=== PATIENT | male | born 1940 | race Caucasian/White ===

== ENCOUNTER 2022-07-04 18:14 | Emergency (ER) | payer MEDICARE, MEDICAID ==
[~2022-07-04] VITALS: Ht 180.3 cm; Wt 55.3 kg
[~2022-07-04 18:14] MED LIST: BUS5 GT; CARB1TAB37 GT; DOCU-300 GT; FAMO-368 GT; MELA1TAB32 GT; [UNRECOGNIZED DRUG - CODE] GT; [UNRECOGNIZED DRUG - CODE] PO
--- NOTE | 2022-07-04 18:14 | NUR ---
180 BIBA ALS TO ER BED 6
[2022-07-04 18:25] VITALS: BP 154/82
--- NOTE | 2022-07-04 18:33 | NUR ---
82 y/o [place] [facility] [place] reports patient has been having episodes of desaturation and increased wbc 20.5. pt is trach to vent with gtube. nurse reports pt has redness on bl heels, elbows, and buttocks. pt saturation on vent is currently 100% here. gcs 6, skin cool/moist/nonintact. ermd made aware pt status. pmh: prostate cancer, parkinsons, chronic respiratory failure, gtube, encephalopathy, sepsis nka med: see list
--- NOTE | 2022-07-04 19:01 | NUR ---
Lab at bedside.
--- NOTE | 2022-07-04 19:10 | NUR ---
Report given to HERNÁN Edmond for transfer of care.
[2022-07-04 19:33] LABS: BASOPHILS % (AUTO) 0.2 % (0.0-2.0); EOSINOPHILS # (AUTO) 0.2 K/uL (0-0.4); EOSINOPHILS % (AUTO) 1.2 % (0.0-4.0); HEMATOCRIT 25.2 % (36-52); LYMPHOCYTES # (AUTO) 1.7 K/uL (2.0-11.5); LYMPHOCYTES % (AUTO) 8.4 % (20.5-51.1); MEAN CORPUSCULAR HEMOGLOBIN 28 pg (27-31); MEAN CORPUSCULAR HGB CONC 30 g/dL (33-37); MEAN CORPUSCULAR VOLUME 90.8 fL (80-94); MONOCYTES # (AUTO) 0.6 K/uL (0.8-1.0); MONOCYTES % (AUTO) 3.1 % (1.7-9.3); NEUTROPHILS % (AUTO) 87.1 % (42.2-75.2); PLATELET COUNT (AUTO) 491 K/uL (140-450); RED BLOOD CELL COUNT(AUTO) 2.78 MIL/uL (4.20-6.10); RED CELL DISTRIBUTION WIDTH 19.2 % (11.6-13.7); WHITE BLOOD COUNT (AUTO) 20.6 K/uL (4.8-10.8)
[2022-07-04 19:38] LABS: HEMOGLOBIN 7.6 g/dL (12.0-18.0)
--- NOTE | 2022-07-04 19:39 | NUR ---
Note raven in EDM - 07/04/22 at 1940 by [id number] FIRST CONTACT WITH PT. SEE INITIAL ASSESSMENT. MOTHER WITH PT.
--- NOTE | 2022-07-04 19:40 | NUR ---
ASSUMED CARE OF PT AT THIS TIME. PT IN POSITION OF COMFORT. NO S/S OF DISTRESS NOTED. VSS. AWAITING RESULTS. WILL CONTINUE TO MONITOR.
[2022-07-04 19:45] LABS: ALBUMIN 2.2 g/dL (3.4-5.0); ANION GAP 9.3 (8-16); ASPARTATE AMINOTRANSFERASE 22 U/L (15-37); CARBON DIOXIDE 34.6 mmol/L (21-32); CHLORIDE 109 mmol/L (98-107); CREATININE 0.7 mg/dL (0.6-1.3); GLUCOSE 95 mg/dL (74-106); POTASSIUM 4.9 mmol/L (3.5-5.1); SODIUM SERUM 148 mmol/L (136-145); TOTAL BILIRUBIN 0.4 mg/dL (0.0-1.0); UREA NITROGEN, BLOOD 41 mg/dL (7-18)
--- NOTE | 2022-07-04 19:50 | NUR ---
SWABS COLLECTED AND SENT TO LAB
[2022-07-04] MEDS ORDERED: CEFEPIME 1,000 MG in DEXTROSE 5% 50 ML IV ONE (21:05)
[2022-07-04] MEDS ORDERED: CEFEPIME 1,000 MG VIAL ONE (21:54)
[2022-07-04] MEDS ORDERED: CEFE1SOL IV (21:56)
[2022-07-04 22:08] LABS: APPEARANCE,URINE CLEAR (CLEAR); BILIRUBIN,URINE NEGATIVE (NEGATIVE); BLOOD, URINE NEGATIVE (NEGATIVE); COLOR,URINE YELLOW (YELLOW); LEUKOCYTE ESTERASE ,URINE NEGATIVE (NEGATIVE); NITRITE, URINE NEGATIVE (NEGATIVE); PH,URINE 8.5 (5.0-9.0); UGLUCOSE NEGATIVE (NEGATIVE)
[2022-07-04 22:34] LABS: RBC,URINE 0-5 /HPF (0-5); WBC,URINE 0-5 /HPF (0-5)
--- NOTE | 2022-07-04 22:47 | NUR ---
[facility] TRANSPORT AT BEDSIDE
[2022-07-04 23:11] VITALS: BP 126/72
--- NOTE | 2022-07-04 23:11 | NUR ---
Patient discharged with v/s stable. Written and verbal after care instructions given and explained TO KEELEY AT [facility] AND CCT RN SADAF. PT SENT WITH 20G IV TO [facility] Ambulance Transport with to half-way. All questions addressed prior to discharge. ID band removed. Patient advised to follow up with PMD. Rx of CEFAPIME given.
--- NOTE | 2022-07-04 23:15 | NUR ---
REPORT CALLED TO KEELEY AT [facility] [place] WITH FULL RETURNED VERBAL UNDERSTANDING.
== END 2022-07-04 23:11 ==
LOC: MED 18:14
DX: J18.9 Pneumonia, unspecified organism (principal); Z20.822 Contact with and (suspected) exposure to COVID-19; I10 Essential (primary) hypertension; Z79.899 Other long term (current) drug therapy; Z85.46 Personal history of malignant neoplasm of prostate
CPT/HCPCS: 36415; 71045; 80053; 81001; 81003; 83605; 85025; 87040; 87086; 87426; 87804; 96365; 99284; J0692; Q0092

== ENCOUNTER 2022-07-06 15:27 | Emergency (ER) | payer MEDICARE, MEDICAID ==
[~2022-07-06] VITALS: Ht 180.3 cm; Wt 55.3 kg
[~2022-07-06 15:27] MED LIST changes: +CEFE1SOL IV
[2022-07-06 15:35] VITALS: BP 134/66
--- NOTE | 2022-07-06 15:35 | NUR ---
BIBA TO ER BED 5
[2022-07-06 15:36] VITALS: BP 128/57
--- NOTE | 2022-07-06 15:44 | NUR ---
SIN AT BEDSIDE FOR EVALUATION
--- NOTE | 2022-07-06 16:00 | NUR ---
82YO MALE PT BIBA [facility] DUE TO ABNORMAL LABS. PER [facility], FACILTY STATES PT HAD HEMOGLOBIN OF 6.4 . PT RECENTLY ADMITTED FOR PNEUMONIA AND ON ANTIBIOTICS. PT ON VENT W/ RESPIRATIONS OF 40. NO VISIBLE DISTRESS NOTED. GTUBE IN PLACE. AROUSABLE TO VOICE AND TOUCH. ON ECONOMICS DEPARTMENT CHAIR. BED AT LOWEST POSITION, BED RAILS UPX2. HX: PROSTATE CANCER, PARKINSONS, CHRONIC RESPIRATORY FAILURE, ENCEPHALOPATHY, SEPSIS , GTUBE NKA VENT SETTINGS: AC VT 550 RR 18 +5 PEEP Fi02 30%.
[2022-07-06 16:16] LABS: BASOPHILS % (AUTO) 0.3 % (0.0-2.0); EOSINOPHILS # (AUTO) 0.2 K/uL (0-0.4); EOSINOPHILS % (AUTO) 1.2 % (0.0-4.0); HEMOGLOBIN 7.4 g/dL (12.0-18.0); LYMPHOCYTES # (AUTO) 2.2 K/uL (2.0-11.5); LYMPHOCYTES % (AUTO) 14.9 % (20.5-51.1); MEAN CORPUSCULAR HEMOGLOBIN 28 pg (27-31); MEAN CORPUSCULAR HGB CONC 31 g/dL (33-37); MEAN CORPUSCULAR VOLUME 90.7 fL (80-94); MONOCYTES # (AUTO) 0.7 K/uL (0.8-1.0); NEUTROPHILS # (AUTO) 11.7 K/uL (1.8-7.7); NEUTROPHILS % (AUTO) 78.6 % (42.2-75.2); PLATELET COUNT (AUTO) 460 K/uL (140-450); RED BLOOD CELL COUNT(AUTO) 2.65 MIL/uL (4.20-6.10); WHITE BLOOD COUNT (AUTO) 14.8 K/uL (4.8-10.8)
[2022-07-06 16:36] LABS: ALBUMIN 2.2 g/dL (3.4-5.0); ANION GAP 8.3 (8-16); ASPARTATE AMINOTRANSFERASE 17 U/L (15-37); CHLORIDE 107 mmol/L (98-107); CREATININE 0.7 mg/dL (0.6-1.3); GLUCOSE 96 mg/dL (74-106); POTASSIUM 4.3 mmol/L (3.5-5.1); SODIUM SERUM 144 mmol/L (136-145); TOTAL BILIRUBIN 0.5 mg/dL (0.0-1.0); UREA NITROGEN, BLOOD 36 mg/dL (7-18)
[2022-07-06 16:38] LABS: PROTHROMBIN TIME 10.2 secs (10.8-13.4)
--- NOTE | 2022-07-06 19:03 | NUR ---
[facility] CONTACTED . MADE AWARE OF PT D/C, TX AND ETA. REPORT GIVEN TO GERALDINE JIM .
--- NOTE | 2022-07-06 19:18 | NUR ---
REPORT GIVEN TO TABITHA JIM. TRANSFER OF CARE AT THIS TIME
--- NOTE | 2022-07-06 19:47 | NUR ---
REPORT TO SADAF JIM WITH [facility] FOR TRANSP[place] [facility] [place]
[2022-07-06 19:49] VITALS: BP 135/66
--- NOTE | 2022-07-06 19:49 | NUR ---
Patient discharged with v/s stable. Written and verbal after care instructions given and explained. Patient verbalized understanding. Ambulance Transport with to [facility]. All questions addressed prior to discharge. Advised to follow up with PMD.
== END 2022-07-06 19:49 | disposition home or self-care (01) ==
LOC: MED 15:27
DX: D64.9 Anemia, unspecified (principal); J18.9 Pneumonia, unspecified organism; I10 Essential (primary) hypertension; Z85.46 Personal history of malignant neoplasm of prostate; Z79.899 Other long term (current) drug therapy
CPT/HCPCS: 36415; 36600; 71045; 80053; 82803; 85025; 85610; 85730; 86886; 86900; 86901; 99285

== ENCOUNTER 2022-07-09 18:54 | Inpatient (IN) | payer MEDICARE, MEDICAID ==
[~2022-07-09] VITALS: Ht 177.8 cm; Wt 55.1 kg
--- NOTE | 2022-07-09 18:56 | NUR ---
pt offloaded to bed 1, rt at bedside.
--- NOTE | 2022-07-09 19:06 | NUR ---
male Poultry Hatchery Supervisor accompanied male patient for Rectal Exam.
[2022-07-09 19:08] VITALS: BP 126/65
[2022-07-09 19:10] VITALS: BP 126/63
[2022-07-09] MEDS ORDERED: PANTOPRAZOLE 40 MG INJ VIAL IVP ONE (19:10)
--- NOTE | 2022-07-09 19:43 | NUR ---
Note undone in [facility] - 07/10/22 at 0044 by [email or web address] Patient lying in bed, awake, chest rise and fall symmetrical, no s/s of distress, patient trach and vent. Addendum: 07/09/22 at 2008 by [email or web address] Amendment undone in [facility] - 07/10/22 at 0044 by [email or web address] Patient lying in bed, awake, chest rise and fall symmetrical, no s/s of distress, patient trach and vent, patient on monitor.
--- NOTE | 2022-07-09 20:09 | NUR ---
Patient lying in bed on left side pillow supported, awake, chest rise and fall symmetrical, no s/s of distress, patient trach and vent, patient on monitor.
[2022-07-09 20:53] LABS: BASOPHILS % (AUTO) 0.3 % (0.0-2.0); EOSINOPHILS # (AUTO) 0.2 K/uL (0-0.4); EOSINOPHILS % (AUTO) 1.8 % (0.0-4.0); HEMATOCRIT 20.5 % (36-52); LYMPHOCYTES # (AUTO) 1.9 K/uL (2.0-11.5); LYMPHOCYTES % (AUTO) 15.6 % (20.5-51.1); MEAN CORPUSCULAR HEMOGLOBIN 29 pg (27-31); MEAN CORPUSCULAR HGB CONC 31 g/dL (33-37); MEAN CORPUSCULAR VOLUME 91.9 fL (80-94); MONOCYTES # (AUTO) 0.9 K/uL (0.8-1.0); MONOCYTES % (AUTO) 7.1 % (1.7-9.3); NEUTROPHILS # (AUTO) 9.1 K/uL (1.8-7.7); NEUTROPHILS % (AUTO) 75.2 % (42.2-75.2); PLATELET COUNT (AUTO) 372 K/uL (140-450); RED BLOOD CELL COUNT(AUTO) 2.24 MIL/uL (4.20-6.10); RED CELL DISTRIBUTION WIDTH 22.5 % (11.6-13.7); WHITE BLOOD COUNT (AUTO) 12.1 K/uL (4.8-10.8)
[2022-07-09 20:58] LABS: HEMOGLOBIN 6.4 g/dL (12.0-18.0)
[2022-07-09 21:07] LABS: ANION GAP 11.5 (8-16); ASPARTATE AMINOTRANSFERASE 14 U/L (15-37); CARBON DIOXIDE 30.8 mmol/L (21-32); CHLORIDE 102 mmol/L (98-107); CREATININE 0.6 mg/dL (0.6-1.3); GLUCOSE 87 mg/dL (74-106); POTASSIUM 4.3 mmol/L (3.5-5.1); SODIUM SERUM 140 mmol/L (136-145); TOTAL BILIRUBIN 0.5 mg/dL (0.0-1.0); UREA NITROGEN, BLOOD 35 mg/dL (7-18)
--- NOTE | 2022-07-09 22:53 | NUR ---
Patient lying in bed, awake, chest rise and fall symmetrical, no s/s of distress, patient trach and vent, patient on monitor. Addendum: 07/10/22 at 0043 by [email or web address] Patient lying in bed on right side pillow supported, awake, chest rise and fall symmetrical, no s/s of distress, patient trach and vent, patient on monitor.
[2022-07-09 23:25] VITALS: BP 118/49
--- NOTE | 2022-07-10 00:10 | NUR ---
Blood transfusion started via 20 G IV in left forearm.
--- NOTE | 2022-07-10 00:25 | NUR ---
Patient has no reaction to transfusion, patient lying in bed, awake, chest rise and fall symmetrical, no s/s of distress, patient trach and vent.
--- NOTE | 2022-07-10 00:44 | NUR ---
Patient lying in bed on left side pillow supported, awake, chest rise and fall symmetrical, no s/s of distress, patient trach and vent, patient on monitor.
--- NOTE | 2022-07-10 02:15 | NUR ---
Patient lying in bed on right side pillow supported, awake, chest rise and fall symmetrical, no s/s of distress, patient trach and vent, patient on monitor.
--- NOTE | 2022-07-10 03:10 | NUR ---
Blood transfusion completed, no reaction, patient resting comfortably in bed, no s/s of distress, IV flushed.
--- NOTE | 2022-07-10 04:10 | NUR ---
Patient lying in bed on left side pillow supported, awake, chest rise and fall symmetrical, no s/s of distress, patient trach and vent, patient on monitor.
[2022-07-10 04:32] LABS: HEMATOCRIT 23.3 % (36-52); HEMOGLOBIN 7.6 g/dL (12.0-18.0)
[2022-07-10 05:16] VITALS: BP 128/63
--- NOTE | 2022-07-10 06:02 | NUR ---
Patient lying in bed on right side pillow supported, awake, chest rise and fall symmetrical, no s/s of distress, patient trach and vent, patient on monitor.
--- NOTE | 2022-07-10 06:02 | NUR ---
[place] [facility] [place].
--- NOTE | 2022-07-10 07:05 | NUR ---
Patient to be transferred to [facility] Room 209. Is being transferred due to Insurance. Receiving facility has accepting physician and available space. ER physician has signed transfer form. Patient or responsible constitution party has agreed to transfer and signed form. Patient belongings inventoried and will be sent with patient. Copy of nursing notes, lab reports, EKG, Physicians Orders and X-rays to be sent with patient. Report called to Cici JIM at receiving facility, Cici JIM verbalized understanding of report, no further questions. [facility] ambulance service has been called for transfer. ETA is [phone].
--- NOTE | 2022-07-10 07:25 | NUR ---
Change of shift report given to AM shift nurse Mavis. AM shift nurse Mavis verbalized understanding of report, no further questions.
--- NOTE | 2022-07-10 07:36 | NUR ---
received report from bianca cadena. pt calm and resting. trached and on vent.vitals stable. pending txfer
--- NOTE | 2022-07-10 07:38 | NUR ---
revised eta for transport is 1200.
[2022-07-10] MEDS ORDERED: guaiFENesin DM 200/20 MG-10 ML 10 ML UDC PO PRN (10:40)
[2022-07-10] MEDS ORDERED: ACETAMINOPHEN 325 MG TAB PO PRN (10:40)
[2022-07-10] MEDS ORDERED: ONDANSETRON 4 MG/2 ML VIAL IM/IVP PRN (10:40)
[2022-07-10] MEDS ORDERED: POTASSIUM CHLORIDE 10 MEQ TABER PO PRN (10:40)
[2022-07-10] MEDS ORDERED: ZOLPIDEM 5 MG TAB PO PRN (10:40)
[2022-07-10] MEDS ORDERED: DOCUSATE 100 MG/10 ML UDC PO PRN (10:45)
--- NOTE | 2022-07-10 11:10 | NUR ---
Patient will be admitted to care of DR RAHMAN. Admited to TELE. Will go to [id number]. Belongings list completed. Report to VIKTORIYA JIM.
[2022-07-10 11:41] LABS: CHOL/HDL RATIO 3.9 (1-4.5); FREE T4 (FREE THYROXINE) 0.93 ng/dL (0.76-1.46); MAGNESIUM 2.1 mg/dL (1.8-2.4); THYROID STIMULATING HORMONE 3.81 uIU/mL (0.34-3.74)
[2022-07-10 12:00] VITALS: BP 138/78
[2022-07-10 12:08] LABS: PROTHROMBIN TIME 10.9 secs (10.8-13.4)
[2022-07-10 16:00] VITALS: BP 153/80
[2022-07-10] MEDS: NACL 0.9% 1,000 ML IV SCH (18:15)
--- NOTE | 2022-07-10 19:30 | NUR ---
RECEIVED PT ON BED, OPEN EYES TO TOUCH, APHASIC, BEDBOUND, ON TRACH TO VENT WITH FF SETTINGS:TV-550, FI02-40%, R-18, PEEP-5, SAT-100%, FLAA-0, IVF INFUSING WELL, G-TUBE CLAMPED AT THIS TIME, KEEP ON NPO FOR POSSIBLE GI PROCEDURE, AWAITING GI CONSULT WITH DR MAYNARD, THA HEEL RISER IN PLACE, WILL REPOSITION Q2H AND OFFLOAD PRESSURE AREAS, SAFETY MEASURES IN PLACE, CALL LIGHT WITHIN REACH.
--- NOTE | 2022-07-10 19:55 | NUR ---
FOUND PATIENT ON ACVC 550 F18 PEEP OF 5 40% SATING AT 100%. AMBU BAG, FLOW METER, SUCTION, AND VENT PLUGGED INTO RED OUTLET. WILL CONTINUE TO MONITOR PATIENT.
[2022-07-10 19:58] LABS: APPEARANCE,URINE CLEAR (CLEAR); BILIRUBIN,URINE NEGATIVE (NEGATIVE); BLOOD, URINE NEGATIVE (NEGATIVE); COLOR,URINE YELLOW (YELLOW); LEUKOCYTE ESTERASE ,URINE 2+ (NEGATIVE); NITRITE, URINE NEGATIVE (NEGATIVE); UGLUCOSE NEGATIVE (NEGATIVE)
[2022-07-10 20:00] VITALS: BP 142/78
[2022-07-10 20:21] LABS: OTHER CASTS, URINE None Seen /LPF (None Seen); RBC,URINE 0-5 /HPF (0-5)
--- NOTE | 2022-07-10 21:20 | NUR ---
MODERATE AMOUNT OF SECRETIONS NOTED COMING OUT OF THE TRACH STOMA, RT MADE AWARE, SECRETIONS SUCTIONED, TOLERATED WELL, NEEDS ATTENDED.
--- NOTE | 2022-07-10 23:15 | NUR ---
INCONTINENT OF URINE AND STOOL, PERINEAL CARE DONE, NEW FOAM DRESSING APPLIED TO SACRAL PRESSURE INJURY, REPOSITIONED AND OFFLOAD PRESSURE AREAS, CONTINUE TO MONITOR CLOSELY.
[2022-07-11] VITALS: BP 121/72
[2022-07-11] MEDS: NACL 0.9% 1,000 ML IV SCH ×2 (03:20→20:05)
[2022-07-11 04:00] VITALS: BP 117/78
--- NOTE | 2022-07-11 05:20 | NUR ---
PT INCONTINENT OF URINE, PERINEAL CARE DONE, REPOSITIONED, SUCTION SECRETION PRN, IVF INFUSING WELL, MONITORED CLOSELY.
[2022-07-11 06:27] LABS: BASOPHILS % (AUTO) 0.4 % (0.0-2.0); EOSINOPHILS # (AUTO) 0.1 K/uL (0-0.4); EOSINOPHILS % (AUTO) 1.5 % (0.0-4.0); HEMATOCRIT 24.6 % (36-52); HEMOGLOBIN 7.8 g/dL (12.0-18.0); LYMPHOCYTES # (AUTO) 1.3 K/uL (2.0-11.5); LYMPHOCYTES % (AUTO) 15.4 % (20.5-51.1); MEAN CORPUSCULAR HEMOGLOBIN 30 pg (27-31); MEAN CORPUSCULAR HGB CONC 32 g/dL (33-37); MEAN CORPUSCULAR VOLUME 93.5 fL (80-94); MONOCYTES # (AUTO) 0.6 K/uL (0.8-1.0); MONOCYTES % (AUTO) 6.9 % (1.7-9.3); NEUTROPHILS # (AUTO) 6.3 K/uL (1.8-7.7); NEUTROPHILS % (AUTO) 75.8 % (42.2-75.2); PLATELET COUNT (AUTO) 364 K/uL (140-450); RED BLOOD CELL COUNT(AUTO) 2.63 MIL/uL (4.20-6.10); RED CELL DISTRIBUTION WIDTH 20.5 % (11.6-13.7); WHITE BLOOD COUNT (AUTO) 8.3 K/uL (4.8-10.8)
--- NOTE | 2022-07-11 06:40 | NUR ---
HR WENT DOWN TO 41, PT RESPOND TO TOUCH, SUCTIONED SECRETIONS, HR WENT TO 65, CONTINUE TO MONITOR CLOSELY.
[2022-07-11 06:42] LABS: ANION GAP 14.9 (8-16); CARBON DIOXIDE 26.6 mmol/L (21-32); CHLORIDE 105 mmol/L (98-107); CREATININE 0.7 mg/dL (0.6-1.3); GLUCOSE 74 mg/dL (74-106); POTASSIUM 4.5 mmol/L (3.5-5.1); SODIUM SERUM 142 mmol/L (136-145); UREA NITROGEN, BLOOD 27 mg/dL (7-18)
--- NOTE | 2022-07-11 07:19 | NUR ---
PT SLEEPING, NO SIGNS OF DISTRESS, REPORT GIVEN TO HERNÁN SADLER FOR CONTINUITY OF CARE.
[2022-07-11 08:00] VITALS: BP 124/66
[2022-07-11 08:07] LABS: T4 (THYROXINE) 6.2 ug/dL (4.5-12.0)
[2022-07-11] MEDS: CARBIDOPA/LEVODOPA 25/100 MG 1 TAB GT SCH (09:59)
[2022-07-11] MEDS: PANTOPRAZOLE 40 MG TABEC PO SCH (09:59)
--- NOTE | 2022-07-11 11:54 | NUR ---
PATIENT HAS BEEN SCREENED AND CATEGORIZED HIGH NUTRITION RISK. PATIENT WILL BE SEEN WITHIN 1-2 DAYS OF ADMISSION. 07/11/2212/18/22 CONSULT AND REFERRAL RECEIVED FOR WOUNDS/PRESSURE INJURY AND TUBE FEEDING JOVANY KIM RD
[2022-07-11 12:00] VITALS: BP 119/73
--- NOTE | 2022-07-11 14:22 | NUR ---
07/11/22 RD INITIAL ASSESSMENT COMPLETED PLEASE REFER TO NUTRITION ASSESSMENT UNDER CARE ACTIVITY FOR ESTIMATED NUTRITIONAL NEEDS. 1. CONTINUE VITAL AF 1.2 WITH A GOAL OF 60ML/HR WITH FWF 150ML Q4H TOLERATED -START AT 20ML/HR AND INCREASE BY 20ML Q4H TOLERATED 2. RECOMMEND TA BID PER RX PROTOCOL FOR WOUNDS -WITH TA BID, PT WILL RECEIVE 1440 TOTAL VOLUME, 1888KCAL, 113GM PROTEIN AND 2068ML FREE WATER DAILY MEETING 84% ESTIMATED KCAL AND 100% ESTIMATED PROTEIN NEEDS; ADEQUATE 3. RD TO FOLLOW-UP 3-5 DAYS, MODERATE RISK OSCAR KIM RD Addendum: 07/13/22 at [address] RECEIVED FNS CONSULT FOR WOUNDS/PRESSURE INJURY. PT ALREADY RECEIVING TA BID PER RX PROTOCOL FOR WOUND HEALING. RD WILL CONTINUE TO MONITOR. OSCAR KIM RD
--- NOTE | 2022-07-11 19:20 | NUR ---
RECEIVED BEDSIDE REPORT FROM DAY SHIFT RN FOR CONTINUITY OF CARE. PT IS TRACH TO VENT. SETTINGS: FIO2 40%, TV 550, RT 18, PEEP 5. PT SATING 94%. NEW FEEDING JUST STARTED. PT IS ON FEEDING RUNNING VITAL AF 1.2 60 ML/HR WITH FWF 150 Q4H. RATE IS 10 ML/HR WITH GOAL OF 60. PT NOT IN ANY DISTRESS. WILL CONTINUE TO MONITOR THE PT.
[2022-07-11 20:00] VITALS: BP 128/64
--- NOTE | 2022-07-11 20:05 | NUR ---
SCHEDULE MEDICATION GIVEN. NO ADVERSE REACTION NOTED. WILL CONTINUE TO MONITOR THE PT.
--- NOTE | 2022-07-11 22:15 | NUR ---
OBSERVED PT. PT IS SLEEPING COMFORTABLY IN BED. PT NOT IN ANY RESPIRATORY DISTRESS. PT IS SATING 97%. WILL CONTINUE TO MONITOR THE PT.
[2022-07-11 23:30] VITALS: BP 86/46
[2022-07-12] VITALS: BP 101/62
--- NOTE | 2022-07-12 00:05 | NUR ---
VITAL SIGNS TAKEN AND STABLE. PT NOT IN ANY RESPIRATORY DISTRESS. PT IS SATING 97%. WILL CONTINUE TO MONITOR THE PT.
--- NOTE | 2022-07-12 02:40 | NUR ---
OBSERVED PT. PT SLEEPING COMFORTABLY IN BED. PT NOT IN ANY RESPIRATORY DISTRESS. SAFETY PRECAUTIONS TAKEN. WILL CONTINUE TO MONITOR THE PT.
[2022-07-12 04:00] VITALS: BP 96/55
--- NOTE | 2022-07-12 04:50 | NUR ---
PT WAS CLEANED AND CHANGED. TOLERATED IT WELL. SAFETY PRECAUTIONS TAKEN. WILL CONTINUE TO MONITOR THE PT.
[2022-07-12 07:13] LABS: BASOPHILS % (AUTO) 0.1 % (0.0-2.0); HEMATOCRIT 22.7 % (36-52); HEMOGLOBIN 7.3 g/dL (12.0-18.0); LYMPHOCYTES # (AUTO) 0.9 K/uL (2.0-11.5); MEAN CORPUSCULAR HEMOGLOBIN 30 pg (27-31); MEAN CORPUSCULAR HGB CONC 32 g/dL (33-37); MONOCYTES # (AUTO) 0.7 K/uL (0.8-1.0); MONOCYTES % (AUTO) 3.9 % (1.7-9.3); NEUTROPHILS # (AUTO) 15.7 K/uL (1.8-7.7); PLATELET COUNT (AUTO) 364 K/uL (140-450); RED BLOOD CELL COUNT(AUTO) 2.46 MIL/uL (4.20-6.10); RED CELL DISTRIBUTION WIDTH 20.4 % (11.6-13.7); WHITE BLOOD COUNT (AUTO) 17.3 K/uL (4.8-10.8)
--- NOTE | 2022-07-12 07:21 | NUR ---
ENDORSED PT TO DAY SHIFT HERNÁN PALENCIA FOR CONTINUITY OF CARE. PT IS STABLE.
[2022-07-12 07:30] LABS: ANION GAP 17.7 (8-16); CARBON DIOXIDE 23.1 mmol/L (21-32); CHLORIDE 106 mmol/L (98-107); CREATININE 0.7 mg/dL (0.6-1.3); GLUCOSE 113 mg/dL (74-106); POTASSIUM 3.8 mmol/L (3.5-5.1); SODIUM SERUM 143 mmol/L (136-145); UREA NITROGEN, BLOOD 32 mg/dL (7-18)
[2022-07-12 08:00] VITALS: BP 119/59
[2022-07-12] MEDS: PANTOPRAZOLE 40 MG TABEC PO SCH (08:42)
[2022-07-12] MEDS: CARBIDOPA/LEVODOPA 25/100 MG 1 TAB GT SCH (08:42)
[2022-07-12 12:00] VITALS: BP 114/59
[2022-07-12] MEDS: NACL 0.9% 1,000 ML IV SCH (12:26)
[2022-07-12 16:00] VITALS: BP 136/66
--- NOTE | 2022-07-12 19:07 | NUR ---
ENDORSE PATIENT TO PM SHIFT NURSE WITH STABLE CONDITION, PATIENT REST IN BED, PIV NS INFUSING @60ML/HR VIA L.FOREARM 20G SITE; TUBE FEEDING VITAL AF 1.2 @50ML/HR WITH WATER FLUSH 150ML Q4 HOURS. BUTTOCK/SACRAL NON-BLANCHABLE PRESSURE INJURY SITE DRESSING CHANGED Addendum: 07/12/22 at 1923 by Shirley Sanchez RN PATIENT IS ON FIO2 40 VIA TRACH TO VENT, AC V/C, PEEP SET 5, FLOW 50ML/H.
--- NOTE | 2022-07-12 19:10 | NUR ---
RECEIVED BEDSIDE REPORT FROM DAY SHIFT RN FOR CONTINUITY OF CARE. PT IS TRACH TO VENT. SETTINGS: FIO2 40%, TV 550, RT 18, PEEP 5. PT SATING 97%. PT IS ON FEEDING RUNNING VITAL AF 1.2 60 ML/HR WITH FWF 150 Q4H. RATE IS 50 ML/HR WITH GOAL OF 60. PT HAS RIGHT HAND 24 GAUGE SALINE LOCK. LFA 20 GAUGE RUNNING NS 60 CC/HR. PT NOT IN ANY DISTRESS. WILL CONTINUE TO MONITOR THE PT.
[2022-07-12 20:00] VITALS: BP 115/64
--- NOTE | 2022-07-12 21:27 | NUR ---
PT OBSERVED. PT IS SLEEPING COMFORTABLY IN BED. PT NOT IN ANY RESPIRATORY DISTRESS. PT IS SATING 97%. IVF FLUID AND FEEDING RUNNING MD ORDER. WILL CONTINUE TO MONITOR THE PT.
[2022-07-13] VITALS (7 sets, daily range): BP systolic 104–130; BP diastolic 60–82
--- NOTE | 2022-07-13 00:56 | NUR ---
PT OBSERVED. PT NOT IN ANY RESPIRATORY DISTRESS. PT SATING 97%. FEEDING NOW IS RUNNING 60CC/HR. GOAL REACHED. PT HAS HAD NO FEVER THROUGHOUT SHIFT. WILL CONTINUE TO MONITOR THE PT.
--- NOTE | 2022-07-13 02:30 | NUR ---
OBSERVED PT. PT SLEEPING COMFORTABLY IN BED. PT NOT IN ANY RESPIRATORY DISTRESS. PT SATING 98%. SAFETY PRECAUTIONS TAKEN. WILL CONTINUE TO MONITOR THE PT.
--- NOTE | 2022-07-13 04:35 | NUR ---
PT WAS CLEANED AND CHANGED. TOLERATED IT WELL. NO RESPIRATORY DISTRESS. PT SATING 99%. WILL CONTINUE TO MONITOR THE PT.
[2022-07-13] MEDS: NACL 0.9% 1,000 ML IV SCH ×2 (06:08→21:33)
[2022-07-13 07:18] LABS: BASOPHILS % (AUTO) 0.1 % (0.0-2.0); EOSINOPHILS % (AUTO) 0.1 % (0.0-4.0); HEMATOCRIT 21.5 % (36-52); LYMPHOCYTES # (AUTO) 0.8 K/uL (2.0-11.5); LYMPHOCYTES % (AUTO) 5.5 % (20.5-51.1); MEAN CORPUSCULAR HEMOGLOBIN 29 pg (27-31); MEAN CORPUSCULAR HGB CONC 32 g/dL (33-37); MEAN CORPUSCULAR VOLUME 91.2 fL (80-94); MONOCYTES # (AUTO) 0.5 K/uL (0.8-1.0); MONOCYTES % (AUTO) 3.6 % (1.7-9.3); NEUTROPHILS # (AUTO) 13.7 K/uL (1.8-7.7); NEUTROPHILS % (AUTO) 90.7 % (42.2-75.2); PLATELET COUNT (AUTO) 327 K/uL (140-450); RED BLOOD CELL COUNT(AUTO) 2.35 MIL/uL (4.20-6.10); RED CELL DISTRIBUTION WIDTH 19.5 % (11.6-13.7); WHITE BLOOD COUNT (AUTO) 15.1 K/uL (4.8-10.8)
--- NOTE | 2022-07-13 07:18 | NUR ---
ENDORSED PT TO DAY SHIFT HERNÁN PALENCIA FOR CONTINUITY OF CARE. PT IS STABLE.
[2022-07-13 07:19] LABS: ANION GAP 10.2 (8-16); CARBON DIOXIDE 26.2 mmol/L (21-32); CHLORIDE 106 mmol/L (98-107); CREATININE 0.6 mg/dL (0.6-1.3); GLUCOSE 151 mg/dL (74-106); POTASSIUM 3.4 mmol/L (3.5-5.1); SODIUM SERUM 139 mmol/L (136-145); UREA NITROGEN, BLOOD 30 mg/dL (7-18)
[2022-07-13 07:43] LABS: HEMOGLOBIN 6.8 g/dL (12.0-18.0)
[2022-07-13] MEDS ORDERED: POTASSIUM CHLORIDE 20% 40 MEQ/15 ML UDC ONE (09:19)
[2022-07-13] MEDS: PANTOPRAZOLE 40 MG INJ VIAL IVP SCH (09:31)
[2022-07-13] MEDS: FLUCONAZOLE 100 MG/NS PREMIX 50 ML IV SCH (09:32)
[2022-07-13] MEDS: CARBIDOPA/LEVODOPA 25/100 MG 1 TAB GT SCH (09:33)
--- NOTE | 2022-07-13 10:47 | NUR ---
WOUND CARE EVALUATION NOTE: SKIN ASSESSMENT DONE WITH THIS 82 Y/O PT. WITH PRIMARY RN. PT. ADMITTED WITH LOW HGB. PT IS A CHRONIC RESPIRATORY FAILURE WITH TRACH AND PT. IS ON PEG. PAST MEDICAL HX OF HYPERTENSION, HISTORY OF PARKINSON, HISTORY OF CHRONIC RESPIRATORY FAILURE, ON MECHANICAL VENTILATION THROUGH TRACHEOSTOMY, DEMENTIA, BENIGN PROSTATIC HYPERTROPHY AND PROSTATE CA. TRACH AND PEG ANKIT-STOMA SKIN DRY AND INTACT. LLQ ABDOMEN HERNIA PRESENT WITH SKIN INTACT. POC DISCUSSED WITH PRIMARY RN, PT. WITH CAROL ANN MATTRESS AND HEEL PROTECTOR IN PLACE WITH OFFLOAD. -TRACH AND PEG TUBE ANKIT-STOMA SITE DRY AND CLEAN -MOISTURE ASSOCIATED SKIN DAMAGE TO SCROTAL AND ANKIT-ANAL AREA, SKIN RED, MOIST, INTACT -PRESSURE INJURY STAGE 3 TO SACRALCOCCYX 5X5X0.2CM, WOUND BED 100% RED AND MOIST, NO ODOR, ANKIT WOUND SKIN NON-BLANCHABLE MOIST, FURTHER DAMAGE INDICATED -LEFT AND RIGHT HIPS BLANCHABLE REDNESS, SKIN INTACT. -RIGHT MEDIAL ANKLE TO FOOT OLD HEALED SCAR TISSUE WITH NON-BLANCHABLE REDNESS, SKIN INTACT RECOMMENDATIONS -APPLY HYDRAGUARD TO SCROTAL AND ANKIT-ANAL AREA BID AND PRN IF SOILING -CLEANSE SACRALCOCCYX WITH NS, PAT DRY, APPLY HYDROGEL TO WOUND BED AND Z GUARD TO ANKIT WOUND SKIN, COVER WITH DRY DRESSING QD AND PRN IF SOILING -APPLY SKIN PREP WIPE TO LEFT AND RIGHT HIPS BILATERAL HEELS AND RIGHT MEDIAL FOOT BID AND GAS STATION MANAGER -POSITIONING: TURN AND REPOSITION PATIENT Q 2H OR SOONER USE PILLOWS TO KEEP BONY PROMINENCES FROM DIRECT CONTACT WITH SURFACES USE REPOSITIONING WEDGES TO PROVIDE 30-DEGREE ANGLE FOR SIDE LYING POSITIONS OFFLOADING OR FOAM DRESSING TO ALL TUBING TO PREVENT MEDICAL DEVICES RELATED PRESSURE INJURY -RE-EVALUATING AND MANAGING INCONTINENCE MONITOR SKIN CONDITION DURING POSITION CHANGE DO NOT MASSAGE REDNESS, BONY PROMINENCES, DO NOT USE DONUT-TYPE DEVICES FREQUENT ANKIT-CARE AND PROVIDE BARRIER CREAMS PRN IF SOILING MOISTURE CONTROL BY OFFER BED CLEMENS/URINAL /ABSORBENT PAD TO WICK AND HOLD MOISTURE KEEP SKIN DRY AND PROTECT FROM FRICTION -MANAGE FRICTION/SHEAR/MOBILITY KEEP HOB AT THE LOWEST LEVEL OF ELEVATION NO MORE THAN 30 DEGREE UNLESS OTHERWISE CONTRAINDICATED USE LIFT SHEET OR TRANSFER DEVICE TO MOVE PATIENT AND PREVENT LATERAL SHEER. PROTECT HEELS, ELBOWS BONY PROMINENCES WITH SKIN BERRIES OR FOAM DRESSING IF EXPOSED TO FRICTION OFFLOAD BILATERAL HEELS BY PLACING PILLOWS UNDER CALVES AT ALL TIMES, UNLESS OTHERWISE CONTRAINDICATED -PRESSURE REDISTRIBUTION SURFACE THERAPY WITH ANTONINO ISOFLEX CAROL ANN MATTRESS -NUTRITION: PLEASE FOLLOW RD RECOMMENDATIONS AND OFFER NUTRITION SUPPLEMENTS IF ORDERED.
[2022-07-13] MEDS: HYDROcodone/APAP 7.5/325 MG 1 TAB PO PRN (10:57)
[2022-07-13] MEDS: PIPERACILLIN/TAZOBACTAM 3.375 GM in DEXTROSE 5% 50 ML IV SCH ×2 (11:54→17:15)
[2022-07-13] MEDS: Z-GUARD PASTE TP SCH (12:48)
[2022-07-13] MEDS: HYDRAGUARD CREAM TP SCH (12:48)
--- NOTE | 2022-07-13 15:30 | NUR ---
DISCHARGE PLANNING PATIENT IS AN 82 YEAR OLD MALE ADMITTED IN [facility] DUE ON 07/10/2022 DUE TO GI BLEED. SW ATTEMPTED TO MEET WITH PATIENT HE WAS NOT AWAKE AND ALERT UNABLE TO PROVIDE HIS OWN INFORMATION. SW ATTEMPTED TO CALL PATIENT'S SISTER MICHAEL QUIGLEY AT TO DISCUSS AND GATHER PATIENT'S COLLATERAL INFORMATION . NO RESPONSE AND SW LEFT HER A VOICE MAIL MSG TO HAVE HER CALL BACK AT DIRECT CONTACT INFORMATION PROVIDED BY ARI. SW CONTACTED SNF/FACILITY [facility] ,SPOKE TO ELEAZAR FROM ADMINISTRATION TO GATHER PATIENT'S INFORMATION. PER ELEAZAR PATIENT WAS ADMITTED AT SNF/[facility] SINCE 11/2021. PATIENT DO NOT HAVE ADVANCE DIRECTIVES OR POWER OF FARMER TREE FRUIT AND NUT CROPS, HOWEVER HAS FAMILY INVOLVED AND SUPPORT FROM HIS SISTER MICHAEL OSORIO AND HIS BROTHER NATE . PER ELEAZAR PATIENT IS IN [facility] CARE AND IS ABLE TO RETURN TOP THEIR FACILITY WHEN HE IS READY AND STABLE FORM DISCHARGE BACK TO [facility]. ARI/TIMUR WILL FOLLOW UP NEEDED.
--- NOTE | 2022-07-13 19:26 | NUR ---
ENDORSE PATIENT TO PM SHIFT NURSE WITH STABLE CONDITION, PATIENT REST IN BED, PIV NS INFUSING @60ML/HR VIA L.FOREARM 20G; TUBE FEEDING VITAL AF 1.2 @60ML/HR WITH WATER FLUSH 150ML Q4 HOURS. BUTTOCK/SACRAL NON-BLANCHABLE PRESSURE INJURY SITE DRESSING CHANGED, 1 UNIT BLOOD GIVEN FOR HGB=6.8 @0800, 07/13/2022; PATIENT IS ON FIO2 40 VIA TRACH TO VENT, AC V/C, PEEP SET 5, FLOW 50ML/H.
--- NOTE | 2022-07-13 19:28 | NUR ---
FOUND PT ON AC/VC VT 550 RATE 18 PEEP 5 AND 40% FIO2. PATIENT WAS AUDIBLY TRYING TO CLEAR SECRETIONS BUT WAS UNABLE TO DO SO. SUCTION PASSED TWICE AND RECEIVED THICK YELLOW CREAMY SECRETIONS. AT BEDSIDE VENT IS PLUGGED INTO RED OUTLET WITH ALARMS SET AND AUDIBLE. WILL CONTINUE TO MONITOR PATIENT.
[2022-07-13] MEDS: FERROUS SULFATE 300 MG/5 ML UDC GT SCH (21:32)
[2022-07-14] VITALS: BP 114/76
[2022-07-14] MEDS: PIPERACILLIN/TAZOBACTAM 3.375 GM in DEXTROSE 5% 50 ML IV SCH ×4 (00:25→23:18)
[2022-07-14] MEDS: HYDRAGUARD CREAM TP SCH ×2 (02:19→13:00)
[2022-07-14] MEDS: Z-GUARD PASTE TP SCH ×2 (02:20→13:00)
[2022-07-14 04:00] VITALS: BP 129/77
[2022-07-14 07:28] LABS: BASOPHILS % (AUTO) 0.1 % (0.0-2.0); EOSINOPHILS # (AUTO) 0.1 K/uL (0-0.4); EOSINOPHILS % (AUTO) 0.6 % (0.0-4.0); HEMATOCRIT 22.3 % (36-52); HEMOGLOBIN 7.4 g/dL (12.0-18.0); LYMPHOCYTES # (AUTO) 0.9 K/uL (2.0-11.5); LYMPHOCYTES % (AUTO) 8.2 % (20.5-51.1); MEAN CORPUSCULAR HEMOGLOBIN 30 pg (27-31); MEAN CORPUSCULAR HGB CONC 33 g/dL (33-37); MEAN CORPUSCULAR VOLUME 90.9 fL (80-94); MONOCYTES # (AUTO) 0.5 K/uL (0.8-1.0); MONOCYTES % (AUTO) 4.8 % (1.7-9.3); NEUTROPHILS # (AUTO) 9.3 K/uL (1.8-7.7); NEUTROPHILS % (AUTO) 86.3 % (42.2-75.2); PLATELET COUNT (AUTO) 296 K/uL (140-450); RED BLOOD CELL COUNT(AUTO) 2.45 MIL/uL (4.20-6.10); RED CELL DISTRIBUTION WIDTH 18.4 % (11.6-13.7); WHITE BLOOD COUNT (AUTO) 10.8 K/uL (4.8-10.8)
[2022-07-14 08:21] LABS: CARBON DIOXIDE 24.5 mmol/L (21-32); CHLORIDE 106 mmol/L (98-107); CREATININE 0.5 mg/dL (0.6-1.3); GLUCOSE 133 mg/dL (74-106); POTASSIUM 3.5 mmol/L (3.5-5.1); SODIUM SERUM 140 mmol/L (136-145); UREA NITROGEN, BLOOD 28 mg/dL (7-18)
[2022-07-14] MEDS: PANTOPRAZOLE 40 MG INJ VIAL IVP SCH (09:30)
[2022-07-14] MEDS: FERROUS SULFATE 300 MG/5 ML UDC GT SCH ×2 (09:30→20:03)
[2022-07-14] MEDS: CARBIDOPA/LEVODOPA 25/100 MG 1 TAB GT SCH (09:30)
[2022-07-14] MEDS: FLUCONAZOLE 100 MG/NS PREMIX 50 ML IV SCH (09:30)
[2022-07-14] MEDS: SKINTEGRITY HYDROGEL TP SCH (13:00)
[2022-07-14] MEDS: NACL 0.9% 1,000 ML IV SCH (14:40)
--- NOTE | 2022-07-14 19:20 | NUR ---
Received pt in bed asleep. No s/sx of pain nor discomfort. trach to vent with setting as ordered sat 100%, no s/sx of respiratory distress. Skin warm and dry to touch. g-tube placement verified via auscultation, no residual noted, feeding tolerated well, head of the bed elevated for aspiration precaution. safety precaution in place, call light in reach,
[2022-07-14 20:00] VITALS: BP 166/84
[2022-07-14 20:23] VITALS: BP 148/87
--- NOTE | 2022-07-14 22:00 | NUR ---
Repositioned for comfort. head of the bed elevated.
--- NOTE | 2022-07-14 22:20 | NUR ---
LOWERED FIO2 TO 30% PT SATS 99%
--- NOTE | 2022-07-14 22:25 | NUR ---
PLACED PATIENT BACK TO 40% SATS DROPPED TO 88%
--- NOTE | 2022-07-14 23:20 | NUR ---
COLLECTED URINE AND DENT TO THE LAB ORDERED. Addendum: 07/15/22 at 0041 by Vicki Hawk RN WRONG PT
[2022-07-15] VITALS (7 sets, daily range): BP systolic 98–147; BP diastolic 54–72
--- NOTE | 2022-07-15 | NUR ---
NO RESIDUAL NOTED FROM G-TUBE. G-TUBE SITE CLEANED AND CHANGED DRESSING. ORAL CARE RENDERED.
[2022-07-15] MEDS: HYDRAGUARD CREAM TP SCH ×2 (00:36→13:00)
[2022-07-15] MEDS: Z-GUARD PASTE TP SCH ×2 (00:37→13:00)
--- NOTE | 2022-07-15 02:00 | NUR ---
ROUNDING DONE. PT IS ASLEEP. NO S/SX OF PAIN NOR DISCOMFORT.
--- NOTE | 2022-07-15 04:00 | NUR ---
PATIENT HAD A BOWEL MOVEMENT, AM CARE RENDERED. NO RESIDUAL FROM G-TUBE, FEEDING TOLERATED WELL, HEAD OF THE BED ELEVATED FOR ASPIRATION PRECAUTION.
[2022-07-15] MEDS: PIPERACILLIN/TAZOBACTAM 3.375 GM in DEXTROSE 5% 50 ML IV SCH ×3 (05:03→18:26)
--- NOTE | 2022-07-15 06:30 | NUR ---
PATIENT IS ASLEEP. NO DISTRESS NOTED. ALL NEEDS ATTENDED TO. SAFETY PRECAUTIONS MAINTAINED DURING THE SHIFT, CALL LIGHT REMAINED WITHIN REACH.
--- NOTE | 2022-07-15 07:17 | NUR ---
ENDORSED CARE TO AM NURSE FOR CONTGINUITY OF CARE. PT ASLEEP. NO DISTRESS.
[2022-07-15] MEDS: NACL 0.9% 1,000 ML IV SCH (07:20)
--- NOTE | 2022-07-15 07:20 | NUR ---
RECEIVED REPORT FROM DATA STORAGE SPECIALIST NURSE JAMES. PT STABLE AND RESTING IN BED. WILL CONTINUE TO MONITOR.
[2022-07-15 08:13] LABS: BASOPHILS % (AUTO) 0.2 % (0.0-2.0); EOSINOPHILS # (AUTO) 0.1 K/uL (0-0.4); EOSINOPHILS % (AUTO) 1.1 % (0.0-4.0); HEMATOCRIT 23.1 % (36-52); HEMOGLOBIN 7.5 g/dL (12.0-18.0); LYMPHOCYTES # (AUTO) 1.2 K/uL (2.0-11.5); LYMPHOCYTES % (AUTO) 13.3 % (20.5-51.1); MEAN CORPUSCULAR HEMOGLOBIN 30 pg (27-31); MEAN CORPUSCULAR HGB CONC 32 g/dL (33-37); MEAN CORPUSCULAR VOLUME 91.7 fL (80-94); MONOCYTES # (AUTO) 0.7 K/uL (0.8-1.0); MONOCYTES % (AUTO) 7.5 % (1.7-9.3); NEUTROPHILS # (AUTO) 6.9 K/uL (1.8-7.7); NEUTROPHILS % (AUTO) 77.9 % (42.2-75.2); PLATELET COUNT (AUTO) 324 K/uL (140-450); RED BLOOD CELL COUNT(AUTO) 2.52 MIL/uL (4.20-6.10); RED CELL DISTRIBUTION WIDTH 18.7 % (11.6-13.7); WHITE BLOOD COUNT (AUTO) 8.9 K/uL (4.8-10.8)
[2022-07-15 08:29] LABS: ANION GAP 13.8 (8-16); CARBON DIOXIDE 25.9 mmol/L (21-32); CHLORIDE 104 mmol/L (98-107); CREATININE 0.5 mg/dL (0.6-1.3); GLUCOSE 113 mg/dL (74-106); POTASSIUM 3.7 mmol/L (3.5-5.1); SODIUM SERUM 140 mmol/L (136-145); UREA NITROGEN, BLOOD 23 mg/dL (7-18)
[2022-07-15] MEDS: FERROUS SULFATE 300 MG/5 ML UDC GT SCH ×2 (08:51→20:01)
[2022-07-15] MEDS: CARBIDOPA/LEVODOPA 25/100 MG 1 TAB GT SCH (08:51)
[2022-07-15] MEDS: PANTOPRAZOLE 40 MG INJ VIAL IVP SCH (08:53)
[2022-07-15] MEDS: SKINTEGRITY HYDROGEL TP SCH (08:53)
[2022-07-15] MEDS: FLUCONAZOLE 100 MG/NS PREMIX 50 ML IV SCH (08:53)
--- NOTE | 2022-07-15 16:18 | NUR ---
07/15/22 RD FOLLOW UP COMPLETED PLEASE REFER TO NUTRITION ASSESSMENT UNDER CARE ACTIVITY FOR ESTIMATED NUTRITIONAL NEEDS. 1. RECOMMEND VITAL AF 1.2 WITH A GOAL OF 65ML/HR WITH FWF 150ML Q4H TOLERATED 2. RECOMMEND TA BID PER RX PROTOCOL FOR WOUNDS -WITH TA BID, PT WILL RECEIVE 1560 TOTAL VOLUME, 2032 KCAL, 123 GM PROTEIN AND 900 ML FREE WATER DAILY MEETING 89% ESTIMATED KCAL AND 100% ESTIMATED PROTEIN NEEDS; ADEQUATE 3. RD TO FOLLOW-UP 7 DAYS, LOW RISK REVIEWED BY JOVANY KIM RD
--- NOTE | 2022-07-15 19:10 | NUR ---
ENDORSED PT TO RENAL NURSE NURSE JAMES FOR CONTINUITY OF CARE. PT IS STABLE AT THIS TIME.
--- NOTE | 2022-07-15 19:15 | NUR ---
RECEIVED PT IN BED ASLEEP. NO S/SX OF PAIN NOR DISCOMFORT. TRACH TO VENT WITH SETTING ORDERED SAT 100%. SKIN WARM AND DRY TO TOUCH. G-TUBE PLACEMENT VERIFIED VIA AUSCULTATION, NO RESIDUAL, FEEDING TOLERATED WELL, HEAD OF THE BED ELEVATED FOR ASPIRATION PRECAUTION. SAFETY PRECAUTION IN PLACE, CALL LIGHT IN REACH.
--- NOTE | 2022-07-15 21:15 | NUR ---
INCONTINENT OF URINE, PERINEAL CARE RENDERED. REPOSITIONED PT. HEAD OF THE BED ELEVATED.
[2022-07-16] VITALS (7 sets, daily range): BP systolic 114–157; BP diastolic 54–83
--- NOTE | 2022-07-16 | NUR ---
PERINEAL CARE RENDERED. NO RESIDUAL FROM G TUBE. REPOSITIONED PT. HEAD OF THE BED ELEVATED.
[2022-07-16] MEDS: Z-GUARD PASTE TP SCH ×2 (00:27→13:22)
[2022-07-16] MEDS: PIPERACILLIN/TAZOBACTAM 3.375 GM in DEXTROSE 5% 50 ML IV SCH ×4 (00:27→18:00)
[2022-07-16] MEDS: HYDRAGUARD CREAM TP SCH ×2 (00:27→13:22)
[2022-07-16] MEDS: HYDROcodone/APAP 7.5/325 MG 1 TAB PO PRN (00:49)
--- NOTE | 2022-07-16 04:00 | NUR ---
PATIENT IS ASLEEP. NO RESIDUAL FROM G-TUBE. SKIN WARM AND DRY TO TOUCH. CALL LIGHT IN REACH.
--- NOTE | 2022-07-16 05:00 | NUR ---
AM CARE RENDERED. ORAL CARE DONE. G-TUBE SITE CLEANED AND CHANGED DRESSING. POSITIONED FOR COMFORT. HEAD OF THE BED ELEVATED.
--- NOTE | 2022-07-16 06:28 | NUR ---
PATIENT IS ASLEEP. ALL NEEDS ATTENDED TO. NO DISTRESS NOTED. SAFETY PRECAUTIONS MAINTAINED, CALL LIGHT REMAINS WITHIN REACH.
--- NOTE | 2022-07-16 07:02 | NUR ---
FOUND PATIENT ON AC/VC 550 F18 PEEP OF 5 40% SATING AT 97%. AMBU BAG, FLOW METER, SUCTION, AND VENT PLUGGED INTO RED OUTLET. NO DISTRESS WAS NOTED. WILL CONTINUE TO MONITOR PATIENT.
--- NOTE | 2022-07-16 07:10 | NUR ---
RECEIVED REPORT FROM LEGAL INVESTIGATOR NURSE JAMES. PT STABLE AND RESTING IN BED. NO SIGNS OF DISTRESS OR LABORED BREATHING AT THIS TIME. PT OPENS EYES OCCASIONALLY, IS TRACH TO VENT WITH SETTINGS AT AC: 18, TIDAL: 550, PEEP:5, AND FIO2: 40%. PT HAS A G-TUBE WITH FEEDING OF VITAL AF 1.2 RUNNING AT 60ML/HR WITH A 150 WATER FLUSH EVERY 4 HOURS. HAS A IV IN HIS R HAND 22G THAT IS INFUSING NS@ 60ML/HR. ALL SAFTEY MEASURES MET AT THIS TIME. WILL CONTINUE TO MONITOR.
[2022-07-16 07:21] LABS: ANION GAP 12.7 (8-16); CARBON DIOXIDE 25.9 mmol/L (21-32); CHLORIDE 99 mmol/L (98-107); CREATININE 0.6 mg/dL (0.6-1.3); GLUCOSE 115 mg/dL (74-106); POTASSIUM 3.6 mmol/L (3.5-5.1); SODIUM SERUM 134 mmol/L (136-145); UREA NITROGEN, BLOOD 18 mg/dL (7-18)
[2022-07-16 07:30] LABS: BASOPHILS % (AUTO) 0.4 % (0.0-2.0); EOSINOPHILS # (AUTO) 0.1 K/uL (0-0.4); EOSINOPHILS % (AUTO) 1.9 % (0.0-4.0); HEMATOCRIT 23.2 % (36-52); HEMOGLOBIN 7.7 g/dL (12.0-18.0); LYMPHOCYTES # (AUTO) 1.2 K/uL (2.0-11.5); MEAN CORPUSCULAR HEMOGLOBIN 30 pg (27-31); MEAN CORPUSCULAR HGB CONC 33 g/dL (33-37); MEAN CORPUSCULAR VOLUME 90.2 fL (80-94); MONOCYTES # (AUTO) 0.5 K/uL (0.8-1.0); MONOCYTES % (AUTO) 7.3 % (1.7-9.3); NEUTROPHILS # (AUTO) 5.2 K/uL (1.8-7.7); NEUTROPHILS % (AUTO) 73.4 % (42.2-75.2); PLATELET COUNT (AUTO) 320 K/uL (140-450); RED BLOOD CELL COUNT(AUTO) 2.57 MIL/uL (4.20-6.10); RED CELL DISTRIBUTION WIDTH 18.5 % (11.6-13.7); WHITE BLOOD COUNT (AUTO) 7.1 K/uL (4.8-10.8)
[2022-07-16] MEDS ORDERED: IV Zosyn IV (09:16)
[2022-07-16] MEDS: PANTOPRAZOLE 40 MG INJ VIAL IVP SCH (09:47)
[2022-07-16] MEDS: CARBIDOPA/LEVODOPA 25/100 MG 1 TAB GT SCH (09:47)
[2022-07-16] MEDS: FERROUS SULFATE 300 MG/5 ML UDC GT SCH ×2 (09:47→20:07)
[2022-07-16] MEDS: FLUCONAZOLE 100 MG/NS PREMIX 50 ML IV SCH (09:47)
[2022-07-16] MEDS: SKINTEGRITY HYDROGEL TP SCH (09:48)
--- NOTE | 2022-07-16 16:23 | NUR ---
DC PLANNING: PATIENT IS RETURNING TO [facility] CAN GO TO ROOM 21A # TO GIVE REPORT [phone] CALLED [facility], F[facility] SANDER TIME 5:30 PM NOTIFIED NANDA JIM. CM TO FOLLOW
[2022-07-16] MEDS: NACL 0.9% 1,000 ML IV SCH ×2 (17:24)
[2022-07-16] MEDS ORDERED: ALBUTEROL 0.083% 2.5 MG/3 ML NEBU INH ONE (18:33)
--- NOTE | 2022-07-16 19:10 | NUR ---
AT BEDSIDE WITH PATIENT. EMS WAS HERE TO TRANSPORT PATIENT TO OTHER CARE FACILITY WHEN PATIENT DESATED. PATIENT BROUGHT BACK TO ROOM AND WE WERE CALLED TO ASSESS. PATIENT HAD A RAPID RESPIRATORY RATE AND WAS HAVING BRONCHOSPASMS. ADMINISTERED ALBUTEROL TX AND SWITCHED PATIENT TO PRVC TO PREVENT HIM FROM PEAK PRESSURING.
--- NOTE | 2022-07-16 19:20 | NUR ---
ENDORSED PT TO DIRECTOR GEOPHYSICAL LABORATORY NURSE JAMES FOR CONTINUITY OF CARE. PT IS STABLE AT THIS TIME.
--- NOTE | 2022-07-16 19:25 | NUR ---
RECEIVED PT IN BED AWAKE. NO S/SX OF PAIN NOR DISCOMFORT. NO S/SX OF RESPIRATORY DISTRESS, TRACH TO VENT SATURATING 96%. G-TUBE FEEDING TOLERATED WELL, NO RESIDUAL NOTED, PLACEMENT VERIFIED VIA AUSCULTATION, HEAD OF THE BED ELEVATED FOR ASPIRATION PRECAUTION. SKIN WARM AND DRY TO TOUCH. SAFETY PRECAUTIONS IN PLACE, CALL LIGHT IN REACH.
--- NOTE | 2022-07-16 20:23 | NUR ---
AT THE END OF MY ROUNDS COULD HEAR PTS VENTILATOR ALARMING. PATIENT WAS SATING AT 88%. PATIENT WAS VERY COARSE AND PERFORMED DEEP TRACHEAL SUCTION. EXPECTORATED MODERATE THICK TENACIOUS WHITE SECRETIONS. IMMEDIATELY THE PATIENT BEGAN SATING AT 100%.
--- NOTE | 2022-07-16 22:10 | NUR ---
REPOSITIONED PATIENT, HEAD OF THE BED ELEVATED.
[2022-07-17] VITALS: BP 110/50
--- NOTE | 2022-07-17 00:09 | NUR ---
VITAL SIGNS TAKEN AND DOCUMENTED. NO RESDIAUL FROM G-TUBE. REPOSITIONED PT. CALL LIGHT IN REACH.
[2022-07-17] MEDS: HYDRAGUARD CREAM TP SCH (00:20)
[2022-07-17] MEDS: Z-GUARD PASTE TP SCH (00:20)
[2022-07-17] MEDS: PIPERACILLIN/TAZOBACTAM 3.375 GM in DEXTROSE 5% 50 ML IV SCH ×2 (00:20→05:16)
--- NOTE | 2022-07-17 02:12 | NUR ---
PATIENT IS ASLEEP. NO S/SX OF RESPIRATORY DISTRESS. CALL LIGHT IN REACH.
[2022-07-17 04:00] VITALS: BP 125/44
[2022-07-17] MEDS: NACL 0.9% 1,000 ML IV SCH (04:29)
--- NOTE | 2022-07-17 05:00 | NUR ---
PT NOTED TO BE DIAPHORETIC, BS CHECKED -119 MG/DL, NOT IN ANY FOR OF DISTRESS. AM CARE RENDERED. MADE COMFORTABLE IN BED.
--- NOTE | 2022-07-17 05:47 | NUR ---
SKIN WARM AND DRY TO TOUCH. HEAD OF THE BED ELEVATED. CALL LIGHT IN REACH.
--- NOTE | 2022-07-17 06:38 | NUR ---
PATIENT IS ASLEEP. ALL NEEDS ATTENDED TO. NO DISTRESS NOTED. SAFETY PRECAUTIONS MAINTAINED, CALL LIGHT REMAINS WITHIN REACH.
[2022-07-17 06:40] LABS: BASOPHILS % (AUTO) 0.2 % (0.0-2.0); EOSINOPHILS # (AUTO) 0.1 K/uL (0-0.4); EOSINOPHILS % (AUTO) 1.7 % (0.0-4.0); HEMATOCRIT 22.9 % (36-52); HEMOGLOBIN 7.4 g/dL (12.0-18.0); LYMPHOCYTES # (AUTO) 1.2 K/uL (2.0-11.5); LYMPHOCYTES % (AUTO) 19.6 % (20.5-51.1); MEAN CORPUSCULAR HEMOGLOBIN 29 pg (27-31); MEAN CORPUSCULAR HGB CONC 32 g/dL (33-37); MEAN CORPUSCULAR VOLUME 89.7 fL (80-94); MONOCYTES # (AUTO) 0.5 K/uL (0.8-1.0); MONOCYTES % (AUTO) 9.1 % (1.7-9.3); NEUTROPHILS # (AUTO) 4.1 K/uL (1.8-7.7); NEUTROPHILS % (AUTO) 69.4 % (42.2-75.2); PLATELET COUNT (AUTO) 322 K/uL (140-450); RED BLOOD CELL COUNT(AUTO) 2.55 MIL/uL (4.20-6.10); RED CELL DISTRIBUTION WIDTH 18.2 % (11.6-13.7); WHITE BLOOD COUNT (AUTO) 5.9 K/uL (4.8-10.8)
[2022-07-17 07:00] LABS: ANION GAP 13.2 (8-16); CARBON DIOXIDE 27.3 mmol/L (21-32); CHLORIDE 102 mmol/L (98-107); CREATININE 0.5 mg/dL (0.6-1.3); GLUCOSE 113 mg/dL (74-106); POTASSIUM 3.5 mmol/L (3.5-5.1); SODIUM SERUM 139 mmol/L (136-145); UREA NITROGEN, BLOOD 14 mg/dL (7-18)
[2022-07-17] MEDS: SKINTEGRITY HYDROGEL TP SCH (09:00)
[2022-07-17] MEDS: PANTOPRAZOLE 40 MG INJ VIAL IVP SCH (09:54)
[2022-07-17] MEDS: CARBIDOPA/LEVODOPA 25/100 MG 1 TAB GT SCH (09:54)
[2022-07-17] MEDS: FERROUS SULFATE 300 MG/5 ML UDC GT SCH (09:54)
[2022-07-17] MEDS: FLUCONAZOLE 100 MG/NS PREMIX 50 ML IV SCH (10:05)
[2022-07-17 12:03] VITALS: BP 125/44
[2022-07-17 12:11] VITALS: BP 127/62
== END 2022-07-17 13:29 | DRG 870 ==
LOC: MED 18:54 → MTU 07-10 10:40
PROVIDERS: ADMIT Family Medicine; ATTEND Family Medicine
PROC: 5A1955Z Respiratory Ventilation, Greater than 96 Consecutive Hours (ICD-10-PCS; principal; 2022-07-09)
PROC: 30233N1 Transfusion of Nonautologous Red Blood Cells into Peripheral Vein, Percutaneous Approach (ICD-10-PCS; 2022-07-09)
DX: A41.9 Sepsis, unspecified organism (principal); E43 Unspecified severe protein-calorie malnutrition; J69.0 Pneumonitis due to inhalation of food and vomit; G93.41 Metabolic encephalopathy; J96.20 Acute and chronic respiratory failure, unspecified whether with hypoxia or hypercapnia; K92.2 Gastrointestinal hemorrhage, unspecified; Z68.1 Body mass index [BMI] 19.9 or less, adult; Z99.11 Dependence on respirator [ventilator] status; Z20.822 Contact with and (suspected) exposure to COVID-19; I10 Essential (primary) hypertension; I87.8 Other specified disorders of veins; D64.9 Anemia, unspecified; F03.90 Unspecified dementia, unspecified severity, without behavioral disturbance, psychotic disturbance, mood disturbance, and anxiety; Z85.46 Personal history of malignant neoplasm of prostate; Z93.0 Tracheostomy status; Z93.1 Gastrostomy status
CPT/HCPCS: 36415; 36430; 71045; 80048; 80053; 81001; 82150; 82272; 82948; 83036; 83540; 83690; 83735; 83880; 84100; 84436; 84439; 84443; 84479; 84484; 85018; 85025; 85610; 85730; 86886; 86900; 86901; 86920; 87081; 87086; 93005; 94002; 94003; 94640; 96374; 99291; 99292; A6248; C9113; J0696; J1450; J2543; J7060; J7613; P9016; Q0092

== ENCOUNTER 2022-08-30 13:36 | Emergency (ER) | payer MEDICARE, OTHER ==
[~2022-08-30] VITALS: Ht 180.3 cm; Wt 59.0 kg
[~2022-08-30 13:36] MED LIST changes: +IV Zosyn IV
[2022-08-30 13:41] VITALS: BP 120/64
--- NOTE | 2022-08-30 13:45 | NUR ---
[facility] TO ER BED 6
[2022-08-30 13:50] VITALS: BP 127/56
[2022-08-30 14:16] LABS: BASOPHILS % (AUTO) 0.2 % (0.0-2.0); EOSINOPHILS % (AUTO) 0.2 % (0.0-4.0); HEMATOCRIT 23.4 % (36-52); HEMOGLOBIN 7.3 g/dL (12.0-18.0); LYMPHOCYTES # (AUTO) 1.1 K/uL (2.0-11.5); LYMPHOCYTES % (AUTO) 6.7 % (20.5-51.1); MEAN CORPUSCULAR HEMOGLOBIN 28 pg (27-31); MEAN CORPUSCULAR HGB CONC 31 g/dL (33-37); MEAN CORPUSCULAR VOLUME 89.1 fL (80-94); MONOCYTES # (AUTO) 0.8 K/uL (0.8-1.0); MONOCYTES % (AUTO) 4.9 % (1.7-9.3); NEUTROPHILS # (AUTO) 14.7 K/uL (1.8-7.7); PLATELET COUNT (AUTO) 401 K/uL (140-450); RED BLOOD CELL COUNT(AUTO) 2.63 MIL/uL (4.20-6.10); RED CELL DISTRIBUTION WIDTH 19.6 % (11.6-13.7); WHITE BLOOD COUNT (AUTO) 16.7 K/uL (4.8-10.8)
[2022-08-30 14:52] LABS: ANION GAP 16.3 (8-16); CARBON DIOXIDE 31.2 mmol/L (21-32); CHLORIDE 100 mmol/L (98-107); CREATININE 0.7 mg/dL (0.6-1.3); GLUCOSE 130 mg/dL (74-106); POTASSIUM 4.5 mmol/L (3.5-5.1); SODIUM SERUM 143 mmol/L (136-145); UREA NITROGEN, BLOOD 31 mg/dL (7-18)
[2022-08-30] MEDS ORDERED: NACL 0.9% 1,000 ML IV ONE ×2 (15:20)
[2022-08-30] MEDS ORDERED: PIPERACILLIN/TAZOBACTAM 3.375 GM in DEXTROSE 5% 50 ML IV ONE (15:25)
--- NOTE | 2022-08-30 15:55 | NUR ---
82 y/o male biba from [facility] [place] for high respiratory rate. Patient has a G-tube in place. Patient is trach and vent dependent. Patient has no signs of distress or pain noted. Patient is non-verbal. Medical History: HTN, Dementia, Chronic Respiratory Failure, Parkinsons, Anxiety, Malignant Prostate NKDA
[2022-08-30] MEDS ORDERED: PIPERACILLIN/TAZOBACTAM 3.375 GM VIAL IV ONE (16:16)
--- NOTE | 2022-08-30 16:52 | NUR ---
lab at bedside.
--- NOTE | 2022-08-30 18:35 | NUR ---
Patient was provided with diaper care and made clean and dry. Patient had a bowel movement.
[2022-08-30] MEDS ORDERED: VANCOMYCIN 1,000 MG in DEXTROSE 5% 250 ML IV ONE (18:45)
[2022-08-30] MEDS ORDERED: VANCOMYCIN 1,000 MG VIAL ONE (19:17)
--- NOTE | 2022-08-30 19:26 | NUR ---
Report given to [facility] for transfer of care.
--- NOTE | 2022-08-30 20:15 | NUR ---
L AC line became infiltrated, immediately stopped fluids and removed line. new line started on L foot 22g.
--- NOTE | 2022-08-30 20:16 | NUR ---
pt continues to pull on trach tubing and IV lines.
--- NOTE | 2022-08-30 21:30 | NUR ---
[facility] TRANSPORT TEAM AT BEDSIDE
[2022-08-30 22:08] VITALS: BP 119/53
--- NOTE | 2022-08-30 22:08 | NUR ---
Patient to be transferred to [facility]. Is being transferred due to INSURANCE. Receiving facility has accepting physician and available space. ER physician has signed transfer form. Patient or responsible alliance party has agreed to transfer and signed form. Patient belongings inventoried and will be sent with patient. Copy of nursing notes, lab reports, EKG, Physicians Orders and X-rays to be sent with patient. Report called to HERNÁN FONTANA at receiving facility. [facility] ambulance service has been called for transfer. ETA is 15-20MINS.
--- NOTE | 2022-08-30 22:08 | NUR ---
PT TAKEN BY [facility] TRANSPORT TEAM TO [facility]
== END 2022-08-30 22:08 | disposition short-term general hospital (02) ==
LOC: MED 13:36
DX: A41.9 Sepsis, unspecified organism (principal); Z20.822 Contact with and (suspected) exposure to COVID-19; J18.8 Other pneumonia, unspecified organism; F03.90 Unspecified dementia, unspecified severity, without behavioral disturbance, psychotic disturbance, mood disturbance, and anxiety; I10 Essential (primary) hypertension; Z79.899 Other long term (current) drug therapy; Z98.890 Other specified postprocedural states; Z85.9 Personal history of malignant neoplasm, unspecified
CPT/HCPCS: 36415; 71045; 80048; 83605; 84484; 85025; 87040; 87426; 94760; 96365; 96366; 96367; 99291; J2543; J3370; J7030; Q0092

== ENCOUNTER 2022-11-23 07:29 | Emergency (ER) | payer MEDICARE, OTHER ==
[~2022-11-23] VITALS: Ht 182.9 cm; Wt 55.3 kg
--- NOTE | 2022-11-23 07:29 | NUR ---
BIBA TO ER BED 10
[2022-11-23 07:30] VITALS: BP 113/44
[2022-11-23 07:50] VITALS: BP 113/44
--- NOTE | 2022-11-23 08:00 | NUR ---
Md at bedside evaluating patient
[2022-11-23 08:41] LABS: BASOPHILS % (AUTO) 0.2 % (0.0-2.0); EOSINOPHILS # (AUTO) 0.2 K/uL (0-0.4); HEMATOCRIT 20.1 % (36-52); LYMPHOCYTES # (AUTO) 1.6 K/uL (2.0-11.5); MEAN CORPUSCULAR HEMOGLOBIN 24 pg (27-31); MEAN CORPUSCULAR HGB CONC 31 g/dL (33-37); NEUTROPHILS # (AUTO) 10.1 K/uL (1.8-7.7); RED BLOOD CELL COUNT(AUTO) 2.57 MIL/uL (4.20-6.10)
[2022-11-23 08:46] LABS: ALBUMIN 2.4 g/dL (3.4-5.0); ANION GAP 9.7 (8-16); ASPARTATE AMINOTRANSFERASE 20 U/L (15-37); CARBON DIOXIDE 31.7 mmol/L (21-32); CHLORIDE 100 mmol/L (98-107); CREATININE 0.8 mg/dL (0.6-1.3); GLUCOSE 126 mg/dL (74-106); POTASSIUM 4.4 mmol/L (3.5-5.1); SODIUM SERUM 137 mmol/L (136-145); TOTAL BILIRUBIN 0.3 mg/dL (0.0-1.0); UREA NITROGEN, BLOOD 25 mg/dL (7-18)
[2022-11-23 08:53] LABS: EOSINOPHILS % (AUTO) 1.8 % (0.0-4.0); LYMPHOCYTES % (AUTO) 12.8 % (20.5-51.1); MONOCYTES # (AUTO) 0.7 K/uL (0.8-1.0); MONOCYTES % (AUTO) 5.6 % (1.7-9.3); NEUTROPHILS % (AUTO) 79.6 % (42.2-75.2); PLATELET COUNT (AUTO) 402 K/uL (140-450); RED CELL DISTRIBUTION WIDTH 19.9 % (11.6-13.7); WHITE BLOOD COUNT (AUTO) 12.7 K/uL (4.8-10.8)
[2022-11-23 08:57] LABS: HEMOGLOBIN 6.2 g/dL (12.0-18.0)
[2022-11-23 09:00] LABS: PROTHROMBIN TIME 10.3 secs (10.8-13.4)
[2022-11-23 09:55] VITALS: BP 113/44
--- NOTE | 2022-11-23 10:33 | NUR ---
Consent signed per sister Karla Ellis agreeing to administration of blood. Blood has been type and crossmatched. Blood sent from blood bank. Information on unit of blood checked against patient wristband at bedside by two nurses. All information matches. Patient or responsible republican informed of potential complications associated with blood transfusion. Informed of possible transfusion reaction symptoms. Aware of need to notify nurse at once of itching, shortness of breath, flushing, feeling of impending doom, or other symptoms not previously present. Vital signs taken within 5 minutes prior to initiation of transfusion. RN will remain with patient for first 15 minutes of transfusion at which time vital signs will be re-assessed.
--- NOTE | 2022-11-23 12:33 | NUR ---
Blood transfusion completed with no reaction. Patient tolerated well.
--- NOTE | 2022-11-23 14:45 | NUR ---
GAVE REPORT TO ANTONIO JIM AT [facility]. PER ANTONIO JIM, ETA FOR [facility] FACILITIES INSPECTOR IS 6065.
--- NOTE | 2022-11-23 15:59 | NUR ---
[facility] AT BEDSIDE FOR TRANSPORT
[2022-11-23 16:16] VITALS: BP 119/53
--- NOTE | 2022-11-23 16:16 | NUR ---
Patient discharged with v/s stable. Written and verbal after care instructions given and explained. Patient verbalized understanding. Ambulance Transport with to [facility]. All questions addressed prior to discharge. Advised to follow up with PMD.
== END 2022-11-23 16:16 ==
LOC: MED 07:29
DX: D64.9 Anemia, unspecified (principal); F03.90 Unspecified dementia, unspecified severity, without behavioral disturbance, psychotic disturbance, mood disturbance, and anxiety; I10 Essential (primary) hypertension; Z20.822 Contact with and (suspected) exposure to COVID-19; Z79.899 Other long term (current) drug therapy; Z98.890 Other specified postprocedural states; Z85.89 Personal history of malignant neoplasm of other organs and systems
CPT/HCPCS: 36415; 36430; 71045; 80053; 83880; 84484; 85025; 85610; 85730; 86886; 86900; 86901; 86920; 87426; 93005; 94002; 94760; 99285; P9016; Q0092

== ENCOUNTER 2023-01-28 17:20 | Emergency (ER) | payer MEDICARE, OTHER ==
[~2023-01-28] VITALS: Ht 172.7 cm; Wt 63.5 kg
--- NOTE | 2023-01-28 17:20 | NUR ---
PT BIBA/ALS TO BED 11. RT AT BEDSIDE
--- NOTE | 2023-01-28 17:25 | NUR ---
MD FORD AT BEDSIDE FOR EVALUATION
[2023-01-28 17:34] VITALS: BP 92/42; PULSE 89; RESP 18; TEMP 99.6; O2SAT 98
--- NOTE | 2023-01-28 17:38 | NUR ---
blood drawn. walked and handed to lab
--- NOTE | 2023-01-28 17:38 | NUR ---
PT BROUGHT IN BY EMS. PT PLACED ON CARESCAPE VENT. FACILITY VENT SETTINGS ARE ACVC 550, F18,+5, 32%. (TRACH TO VENT). VENT PLUGGED INTO RED OUTLET, WHEELS ARE LOCKED, ALARMS ARE SET AND AUDIBLE, AMBUBAG AT BEDSIDE. WILL CONTINUE TO MONITOR.
[2023-01-28 17:43] VITALS: O2SAT 98
--- NOTE | 2023-01-28 17:43 | NUR ---
82YO MALE PT BIBA [facility] D/T ABNORMAL LABS. FACILITY REPORTS HGB OF 6.8 FROM TODAYS MORNING BLOOD DRAW. DENY FEVER, VOMITING, BLOOD IN STOOL OR CHANGE IN PT CONDITION. PT NON VERBAL , AT BASELINE. TRACH TO VENT. GTUBE IN PLACE. AROUSABLE TO TOUCH AND PAIN. NO VISIBLE DISTRESS. 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 HX:CHRONIC RESPIRATORY FAILURE, HTN, BPH, PARKINSONS, M.ENCEPHALOPATHY, DIMENTIA NKA
[2023-01-28 17:47] LABS: BASOPHILS # (AUTO) 0.1 K/uL (0.00-0.22); BASOPHILS % (AUTO) 0.4 % (0.0-2.0); EOSINOPHILS # (AUTO) 0.1 K/uL (0-0.4); EOSINOPHILS % (AUTO) 1.1 % (0.0-4.0); HEMOGLOBIN 7.4 g/dL (12.0-18.0); LYMPHOCYTES # (AUTO) 1.7 K/uL (2.0-11.5); LYMPHOCYTES % (AUTO) 12.4 % (20.5-51.1); MEAN CORPUSCULAR HEMOGLOBIN 23 pg (27-31); MEAN CORPUSCULAR HGB CONC 30 g/dL (33-37); MEAN CORPUSCULAR VOLUME 78.5 fL (80-94); MONOCYTES # (AUTO) 0.7 K/uL (0.8-1.0); MONOCYTES % (AUTO) 5.1 % (1.7-9.3); NEUTROPHILS # (AUTO) 11.1 K/uL (1.8-7.7); PLATELET COUNT (AUTO) 425 K/uL (140-450); RED BLOOD CELL COUNT(AUTO) 3.19 MIL/uL (4.20-6.10); RED CELL DISTRIBUTION WIDTH 21.8 % (11.6-13.7); WHITE BLOOD COUNT (AUTO) 13.8 K/uL (4.8-10.8)
[2023-01-28 17:54] LABS: ANION GAP 9.3 (8-16); CARBON DIOXIDE 33.3 mmol/L (21-32); CHLORIDE 101 mmol/L (98-107); CREATININE 0.8 mg/dL (0.6-1.3); GLUCOSE 122 mg/dL (74-106); POTASSIUM 4.6 mmol/L (3.5-5.1); SODIUM SERUM 139 mmol/L (136-145); UREA NITROGEN, BLOOD 19 mg/dL (7-18)
[2023-01-28 18:19] VITALS: TEMP 99.1
[2023-01-28 19:17] VITALS: BP 116/38; PULSE 67; O2SAT 98
--- NOTE | 2023-01-28 19:33 | NUR ---
REPORT GIVEN TO RICKY JIM. TRANSFER OF CARE AT THIS TIME
--- NOTE | 2023-01-28 20:52 | NUR ---
[facility] HERE FOR TRANSPORT
--- NOTE | 2023-01-28 21:00 | NUR ---
Patient to be transferred to [facility]. Is being transferred due to CEC. Receiving facility has accepting physician and available space. ER physician has signed transfer form. Patient or responsible alliance party has agreed to transfer and signed form. Patient belongings inventoried and will be sent with patient. Copy of nursing notes, lab reports, EKG, Physicians Orders and X-rays to be sent with patient. Report called to Mary Anne at receiving facility. [facility] ambulance service has been called for transfer.
[2023-01-28 22:14] VITALS: BP 110/49; PULSE 64; RESP 22; O2SAT 95
== END 2023-01-28 21:00 | disposition home or self-care (01) ==
LOC: MED 17:20
DX: D64.9 Anemia, unspecified (principal); F03.90 Unspecified dementia, unspecified severity, without behavioral disturbance, psychotic disturbance, mood disturbance, and anxiety; I10 Essential (primary) hypertension; J96.10 Chronic respiratory failure, unspecified whether with hypoxia or hypercapnia; Z98.890 Other specified postprocedural states; Z79.899 Other long term (current) drug therapy
CPT/HCPCS: 36415; 80048; 85025; 86886; 86900; 86901; 99285